=== PATIENT | female | born 1955 | race African-American/Black ===

== ENCOUNTER 2024-08-26 09:37 | Outpatient (CLI) | payer BC, SELFPAY | END 2024-08-26 09:38 | disposition home or self-care (01) | PROVIDERS: PCP Internal Medicine; Visit Provider Physical Medicine & Rehabilitation Pain Medicine | DX: M43.16 Spondylolisthesis, lumbar region (principal); M51.369 Other intervertebral disc degeneration, lumbar region without mention of lumbar back pain or lower extremity pain | CPT/HCPCS: 72148 ==

== ENCOUNTER 2024-12-07 14:08 | Outpatient (CLI) | payer BC, SELFPAY ==
--- NOTE | ~2024-12-07 | XR_ITS ---
Left Knee Technique: AP, lateral, and sunrise views were obtained. Clinical History: Pain Findings: No fracture or dislocation is seen. There is advanced degenerative change of the lateral pa tellofemoral compartment. There is mild to moderate degenerative change of the medial compartment. Th ere is a 2.6 cm loose body posteriorly, possibly within a Kirk's cyst. Soft tissues are otherwise un remarkable. No joint effusion is seen. Impression: Tricompartmental degenerative change, advanced in the lateral and patellofemoral compartments. 2.6 cm posterior loose body, likely within a Kirk's cyst. Reviewed, dictated and finalized at location . Impression: Tricompartmental degenerative change, advanced in the lateral and patellofemora l compartments. 2.6 cm posterior loose body, likely within a Kirk's cyst.
--- NOTE | ~2024-12-07 | XR_ITS ---
Right Knee Technique: AP, lateral, and sunrise views were obtained. Clinical History: Pain Findings: No fracture or dislocation is seen. Osseous alignment is anatomic. There is moderate to sev ere tricompartmental degenerative joint disease, worst in the patellofemoral compartment. There are 2 loose bodies posteriorly, measuring 1.4 cm and 1.2 cm in size respectively. Soft tissues are unremar kable. No joint effusion is seen. Impression: Moderate to advanced tricompartmental osteoarthritis, as detailed above. 2 posterior loose bodies, as detailed above. Reviewed, dictated and finalized at location M. Impression: Moderate to advanced tricompartmental osteoarthritis, as detailed above. 2 posterior loose bodies, as detailed above.
== END 2024-12-07 14:09 | disposition home or self-care (01) ==
PROVIDERS: PCP Internal Medicine; Visit Provider Physical Medicine & Rehabilitation Pain Medicine
DX: M17.11 Unilateral primary osteoarthritis, right knee (principal); M23.41 Loose body in knee, right knee; M25.562 Pain in left knee; M23.42 Loose body in knee, left knee
CPT/HCPCS: 73564